=== PATIENT | male | born 1995 | race Hispanic/Latino ===

== ENCOUNTER 2017-05-04 20:40 | Emergency (ER) | payer MEDICAID ==
[2017-05-04 20:40] VITALS: BMI 27.8
[2017-05-04 20:51] VITALS: O2SAT 100
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
[2017-05-04] MEDS ORDERED: Bacitracin 500 Units/gm Oint Foilpak UD TOP ONE (21:12)
[2017-05-04 22:32] VITALS: TEMP 98.4
[2017-05-04 23:46] VITALS: BP 129/68; PULSE 73; RESP 20
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
--- NOTE | 2017-05-05 09:45 | RAD ---
PROCEDURE: Right Hand Radiographs. HISTORY: swelling pain COMPARISON: None. FINDINGS: BONES: There is no acute displaced fracture or bone destruction. Bone alignment and mineralization are normal. JOINTS: Normal. No osteoarthritic changes. SOFT TISSUES: Normal. OTHER FINDINGS: None. IMPRESSION: No acute fracture or dislocation.
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
--- NOTE | 2017-05-05 09:48 | RAD ---
PROCEDURE: Radiographs of the right tibia and fibula. HISTORY: Pain COMPARISON: None available. TECHNIQUE: Frontal and lateral views obtained. FINDINGS: BONES: There is an acute transverse mildly displaced fracture in the proximal diaphysis of fibula with 1 cortex width lateral and posterior displacement. No significant angulation. Bone alignment and mineralization are normal. JOINT SPACES: Unremarkable. OTHER FINDINGS: None. IMPRESSION: Acute transverse mildly displaced fracture in the proximal diaphysis of fibula with 1 cortex width lateral and posterior displacement. No significant angulation.
== END 2017-05-04 23:55 | disposition home or self-care (01) ==
LOC: C.ER 20:40
DX: S82.421A Displaced transverse fracture of shaft of right fibula, initial encounter for closed fracture (principal); S30.0XXA Contusion of lower back and pelvis, initial encounter; S30.810A Abrasion of lower back and pelvis, initial encounter; S09.90XA Unspecified injury of head, initial encounter; V13.4XXA Pedal cycle driver injured in collision with car, pick-up truck or van in traffic accident, initial encounter
CPT/HCPCS: 29505; 70450; 73130; 73562; 73590; 96372; 99285; J2270